=== PATIENT | female | born 1990 | race African-American/Black ===

== ENCOUNTER 2016-08-24 14:14 | Emergency (ER) | payer OTHER ==
[~2016-08-24] VITALS: Ht 152.4 cm; Wt 68.0 kg
[~2016-08-24 14:14] MED LIST: CITRATE OF MAG296 ML PO; CODEINE-GUAIFE120 ML PO; COLACE 100 MG100 MG PO; DERMOPLAST SPRA56 ML; DIFLUCAN150 MG PO; FLEXERIL PO; FLONASE 0.05%50 MCG NASAL; IBUPROFEN 600600 M1 PO; IRON325 PO; KEFLEX500 MG PO; LANOLIN56 GM; MACROBID 100 M100 M1 PO; MOBIC15 MG PO; NOHOMEMEDICATIONS; PRENATAL; PRENATAL PO; PROCTOFOAM15 GM TP; TESSALON PERLE100 MG PO; TUCKS MEDICATE1 EAC1
[2016-08-24 15:05] LABS: URINE BILIRUBIN NEGATIVE (Negative); URINE BLOOD NEGATIVE (Negative); URINE COLOR YELLOW; URINE GLUCOSE-RANDOM* NEGATIVE (Negative); URINE KETONES NEGATIVE (Negative); URINE NITRITE NEGATIVE (Negative); URINE PROTEIN (DIPSTICK) TRACE (Negative); URINE UROBILINOGEN 0.2 E.U./dl (0.2-1.0)
[2016-08-24 15:09] LABS: CASTS None Seen /LPF (None Seen); SQUAMOUS >10 Many /LPF (0-3); URINE RBC None Seen /HPF (0-2); URINE WBC 6-15 Few /HPF (0-5)
[2016-08-24 15:10] LABS: CRYSTALS None Seen /LPF (None Seen)
[2016-08-24] MEDS ORDERED: CIPRO500 MG PO (15:33)
[2016-08-24] MEDS ORDERED: NAPROSYN500 MG PO (15:33)
[2016-08-24 15:54] VITALS: BP 114/72
[2016-08-26 18:06] LABS: CHLAMYDIA TRACHOMATIS-PCR Negative (Negative); NEISSERIA GONORRHEA-PCR Negative (Negative)
== END 2016-08-24 15:55 | disposition home or self-care (01) ==
LOC: ER 14:14
PROVIDERS: Nurse Practitioner Family
DX: N39.0 Urinary tract infection, site not specified (principal); N72 Inflammatory disease of cervix uteri

== ENCOUNTER 2017-06-12 23:08 | Emergency (ER) | payer OTHER ==
[~2017-06-12] VITALS: Ht 154.9 cm; Wt 68.0 kg
--- NOTE | ~2017-06-12 | EKG ---
[address] [employer] [address] ELECTROCARDIOGRAM REPORT Name: ASIA SHORT Room #: DEP Vladimir#: [id number] Admission: 06/12/17 Attend Phys: Discharge: 06/13/17 Date of : 89 Report #: [id number] THIS REPORT FOR: //name// [facility] ED Test Date: 2017-06-13 Test Time: 00:05:12 Pat Name: ASIA SHORT Department: Room: Gender: F Ab Initio Etl Developer: ava : 1990 Requested By: Lynnette Mendes Order Number: [id number] MD: Miguel Love Measurements Intervals [place] Rate: 72 P: 4 [place]: 164 QRS: 22 QRSD: 89 T: 30 QT: 382 QTc: 419 Interpretive Statements Sinus rhythm No significant abnormality No previous ECG available for comparison Electronically Signed On 06-14-2017 15:24:46 [employer] REPRESENTATIVE by Miguel Love [email or web address] <ELECTRONICALLY SIGNED> By: Miguel Love MD, [facility] 06/14/17 1524 0005 0005 Miguel Love MD, FACC /EPI
[~2017-06-12 23:08] MED LIST changes: +CIPRO500 MG PO; +NAPROSYN500 MG PO
[2017-06-13] MEDS ORDERED: NORCO 5-325 TA1 EACH PO (00:12)
== END 2017-06-13 00:29 | disposition home or self-care (01) ==
LOC: ER 23:08
DX: R09.1 Pleurisy (principal); R07.9 Chest pain, unspecified

== ENCOUNTER 2018-05-26 16:25 | Emergency (ER) | payer OTHER ==
[~2018-05-26] VITALS: Ht 154.9 cm; Wt 72.6 kg
[~2018-05-26 16:25] MED LIST changes: +NORCO 5-325 TA1 EACH PO
[2018-05-26] MEDS ORDERED: NAPROSYN500 MG PO (17:31)
[2018-05-26] MEDS ORDERED: NORFLEX100 MG PO (17:31)
[2018-05-26 17:56] VITALS: BP 126/66
== END 2018-05-26 17:40 | disposition home or self-care (01) ==
LOC: ER 16:25
DX: S16.1XXA Strain of muscle, fascia and tendon at neck level, initial encounter (principal); X58.XXXA Exposure to other specified factors, initial encounter; Y92.89 Other specified places as the place of occurrence of the external cause; Y93.89 Activity, other specified; Y99.8 Other external cause status

== ENCOUNTER 2019-01-29 07:16 | Emergency (ER) | payer OTHER ==
[~2019-01-29] VITALS: Ht 154.9 cm; Wt 72.6 kg
[~2019-01-29 07:16] MED LIST changes: +NORFLEX100 MG PO
[2019-01-29 07:18] VITALS: BP 112/71
== END 2019-01-29 09:57 | disposition home or self-care (01) ==
LOC: ER 07:16
DX: H69.92 Unspecified Eustachian tube disorder, left ear (principal); R59.1 Generalized enlarged lymph nodes

== ENCOUNTER 2021-05-21 10:06 | Emergency (ER) | payer OTHER ==
[~2021-05-21] VITALS: Ht 165.1 cm; Wt 68.0 kg
[2021-05-21 10:07] VITALS: BP 150/93
[2021-05-21] MEDS ORDERED: FLEXERIL PO (10:27)
[2021-05-21] MEDS ORDERED: IBUPROFEN 800800 M1 PO (10:27)
== END 2021-05-21 10:40 | disposition home or self-care (01) ==
LOC: ER 10:06
DX: M54.59 Other low back pain (principal)